=== PATIENT | male | born 1975 | race Caucasian/White ===

== ENCOUNTER 2017-04-08 11:36 | Emergency (ER) | payer BC ==
[2017-04-08 11:45] VITALS: BMI 29.6
[2017-04-08 11:50] VITALS: TEMP 98.1
[2017-04-08] MEDS ORDERED: Sodium Chloride 0.9% 1,000 ML IV ONE (12:16)
[2017-04-08] MEDS ORDERED: Aspirin 325 mg EC Tablets PO STA (12:16)
--- NOTE | 2017-04-08 12:23 | C.PDOC ---
History Of Present Illness 41 year old male, with no past medical history, presents to the ED with complaints of intermittent left sided non-radiating chest pain described as a pressure since yesterday. He notes chest pain is exacerbated by deep breaths. He also reports left sided throbbing headache. Patient states he took two Tylenol before bed yesterday with some relief. He denies fever, visual changes, dizziness, or shortness of breath. Time Seen by Provider: 04/08/17 12:09 Chief Complaint (Nursing): Chest Pain History Per: Patient History/Exam Limitations: no limitations Onset/Duration Of Symptoms: Days (1 day ) Current Symptoms Are (Timing): Still Present Quality: Pressure (chest pressure ) Exacerbating Factors: Deep Breathing Recent travel outside of the [place]: No Past Medical History Reviewed: Historical Data, Nursing Documentation, Vital Signs Vital Signs: Last Vital Signs Temp 98.1 F 04/08/17 11:49 Pulse 59 L 04/08/17 13:22 Resp 16 04/08/17 13:22 BP 125/83 04/08/17 13:22 Pulse Ox 99 04/08/17 13:33 - Medical History PMH: No Chronic Diseases Family History: States: Diabetes (mother ) Denies: [place], CAD - Social History Hx Tobacco Use: No Hx Alcohol Use: No Hx Substance Use: No - Immunization History Hx Tetanus Toxoid Vaccination: No Hx Influenza Vaccination: No Hx Pneumococcal Vaccination: No Review Of Systems Constitutional: Negative for: Fever, Chills Eyes: Negative for: Vision Change ENT: Negative for: Ear Pain, Nose Congestion Cardiovascular: Positive for: Chest Pain. Negative for: Palpitations Respiratory: Negative for: Cough, Shortness of Breath Gastrointestinal: Negative for: Nausea, Vomiting, Abdominal Pain, Diarrhea Genitourinary: Negative for: Dysuria Musculoskeletal: Negative for: Back Pain Neurological: Positive for: Headache. Negative for: Weakness, Numbness Physical Exam - Physical Exam Appears: Non-toxic, No Acute Distress Skin: Warm, Dry Head: Atraumatic, Normacephalic, No Tenderness, No Swelling Eye(s): bilateral: Normal Inspection, PERRL, EOMI Oral Mucosa: Moist Neck: Normal ROM, Supple Chest: Symmetrical, No Deformity, Tenderness (reproducable left sided chest tenderness ) Cardiovascular: Rhythm Regular, No Murmur Respiratory: Normal Breath Sounds, No Rales, No Rhonchi, No Wheezing Gastrointestinal/Abdominal: Soft, No Tenderness, No Distention, No Guarding, No Rebound Extremity: Normal ROM, No Tenderness, No Pedal Edema, No Calf Tenderness, No Deformity, No Swelling Neurological/Psych: Oriented x3, Normal Speech, Normal Motor, Normal Sensation Gait: Steady ED Course And Treatment - Laboratory Results Result Diagrams: 04/08/17 12:27 04/08/17 12:27 Lab Interpretation: No Acute Changes ECG: Interpreted By Me, Viewed By Me ECG Rhythm: Sinus Rhythm ECG Interpretation: No Acute Changes Rate From EC O2 Sat by Pulse Oximetry: 99 (room air ) - Radiology CXR: Viewed By Me, Read By Radiologist CXR Interpretation: Yes: Other (Poor inspiration with low lung volumes, minor crowded bronchovascular markings and suspected minimal bibasilar atelectasis.) Progress Note: Blood work, CXR, and UA were ordered. Patient was given aspirin and IV fluids. Medical Decision Making Medical Decision Making: Impression: chest pain and headache Prior records reviewed: None available for review Plan: * CXR * EKG * Labs Progress: CXR and EKG ordered and reviewed. Labs were unremarkable, negative troponin and normal lipid panel. Based on history, exam and negative findings and no arrhythmia during cardiac monitoring, presentation unlikely for ACS and symptoms likely musculoskeletal. Patient has no significant risk factors and no impressive family history. Patient remained alert oriented with stable vital signs. On re-evaluation he is resting comfortably and reports feeling better. I explained all results and provided copy of reports. I advised patient to take analgesics and to follow up outpatient in the clinic for further care Disposition Counseled Patient/Family Regarding: Studies Performed, Diagnosis, Need For Followup - Disposition Referrals: Keon Barrera MD [Medical Doctor] - Disposition: HOME/ ROUTINE Disposition Time: 13:27 Condition: STABLE Additional Instructions: Jacqui laboratorios y la radiografa de trax lisa normales Por favor, siga en la clnica para ms evaluacin Tarrant Aspirina o Ibuprofeno por cualquier dolor que pueda tener Regreso al hospital por cualquier dolor, dificultad para respirar o preocupaci n que empeora Instructions: Noncardiac Chest Pain (ED) Forms: [employer] (Scottish) Print Language: GERMAN - POA Present On Arrival: None - Clinical Impression Clinical Impression: Chest pain - PA / CARDIOVASCULAR TECHNOLOGIST / Resident Statement MD/DO has reviewed & agrees with the documentation as recorded. - Scribe Statement The provider has reviewed the documentation as recorded by the Scribe Roopa Wright All medical record entries made by the Guevaraibmichael were at my direction and personally dictated by me. I have reviewed the chart and agree that the record accurately reflects my personal performance of the history, physical exam, medical decision making, and the department course for this patient. I have also personally directed, reviewed, and agree with the discharge instructions and disposition.
[2017-04-08 12:30] LABS: BASO # 0.1 K/uL (0.0-0.2); EOS % 1.4 % (0.0-4.0); HEMATOCRIT 42.3 % (35.0-51.0); LYMPH # 1.7 K/uL (1.0-4.3); MEAN CELL VOLUME 84.1 fL (80.0-94.0); MEAN CORPUSCULAR HEMOGLOBIN 27.6 pg (27.0-31.0); MEAN CORPUSCULAR HGB CONC 32.8 g/dL (33.0-37.0); MEAN PLATELET VOLUME 8.8 fL (7.2-11.7); MONO # 0.3 K/uL (0.0-0.8); MONO % 10.6 % (0.0-10.0); RED CELL DISTRIBUTION WIDTH 13.9 % (11.5-14.5); WHITE BLOOD COUNT 3.1 K/uL (4.8-10.8)
--- NOTE | 2017-04-08 12:35 | RAD ---
HISTORY: chest pain COMPARISON: No prior. TECHNIQUE: Chest PA and lateral FINDINGS: LUNGS: Poor inspiration with low lung volumes, minor crowded bronchovascular markings and suspected minimal bibasilar atelectasis. PLEURA: No significant pleural effusion identified. No pneumothorax apparent. CARDIOVASCULAR: Normal. OSSEOUS STRUCTURES: Very minor multilevel degenerative spondylosis of thoracic VISUALIZED UPPER ABDOMEN: Normal. OTHER FINDINGS: None. IMPRESSION: Poor inspiration with low lung volumes, minor crowded bronchovascular markings and suspected minimal bibasilar atelectasis.
[2017-04-08] MEDS ORDERED: Sodium Chloride 0.9% 1,000 ML ONE (12:36)
[2017-04-08 12:46] LABS: CHLORIDE 99 mmol/L (98-107)
[2017-04-08 12:47] LABS: POTASSIUM 4.4 mmol/L (3.6-5.2); SODIUM 140 mmol/L (132-148)
[2017-04-08 12:48] LABS: CHOLESTEROL 187 mg/dL (0-199)
[2017-04-08 12:49] LABS: ALB/GLOB RATIO 1.6 (1.0-2.1); ALKALINE PHOSPHATASE 78 U/L (38-126); ALT/SGPT 37 U/L (21-72); AST/SGOT 25 U/L (17-59); BILIRUBIN,TOTAL 0.5 mg/dL (0.2-1.3); BLOOD UREA NITROGEN 14 mg/dL (9-20); CARBON DIOXIDE 25 mmol/L (22-30); GFR AFRICAN-AMERICAN > 60; GLUCOSE,RANDOM 102 mg/dL (75-110)
[2017-04-08 12:50] LABS: CALCIUM 8.3 mg/dl (8.6-10.4)
[2017-04-08 13:24] VITALS: BP 125/83; PULSE 59; RESP 16
[2017-04-08 13:32] VITALS: O2SAT 99
--- NOTE | 2017-04-10 18:26 | CARD ---
APPROVED REPORT EKG Measurement Heart [id number] <Conclusion> Normal sinus rhythm Minimal voltage criteria for LVH, may be normal variant Borderline ECG
== END 2017-04-08 14:04 | disposition home or self-care (01) ==
LOC: C.ER 11:36
DX: R07.9 Chest pain, unspecified (principal)
CPT/HCPCS: 71020; 80053; 80061; 83880; 84484; 85025; 85610; 85730; 93005; 96360; 99285; J7040